=== PATIENT | female | born 1970 | race Caucasian/White ===

== ENCOUNTER 2019-12-30 07:03 | Outpatient (CLI) | payer OTHER | END 2019-12-30 23:59 | disposition home or self-care (01) | LOC: EDSEX 07:03 → ROC 07:03 | PROVIDERS: ATTEND Radiology Radiation Oncology | DX: C54.1 Malignant neoplasm of endometrium (principal); Z79.890 Hormone replacement therapy | CPT/HCPCS: 99214; G0463 ==